=== PATIENT | male | born 1980 | race African-American/Black ===

== ENCOUNTER 2018-01-07 17:22 | Inpatient (IN) | payer OTHER ==
[~2018-01-07] VITALS: Ht 172.7 cm; Wt 70.3 kg
--- NOTE | 2018-01-07 17:38 | NUR ---
PATIENT AMBULATED TO BED 1 AT THIS TIME.
[2018-01-07] MEDS ORDERED: ETOMIDATE 20 MG/10 ML VIAL IVP ONE (17:40)
[2018-01-07] MEDS ORDERED: DEXTROSE 5% IV PRN (17:40)
[2018-01-07] MEDS ORDERED: methylPREDNISolone SS 125 MG/2 ML VIAL IVP ONE (17:40)
[2018-01-07] MEDS ORDERED: EPINEPHRINE IV PRN (17:40)
[2018-01-07] MEDS ORDERED: ALBUTEROL 0.083% 2.5 MG/3 ML NEBU INH ONE (17:40)
[2018-01-07] MEDS ORDERED: MAG SULF 2000 MG/WATER PREMIX 50 ML IV ONE (17:40)
[2018-01-07] MEDS ORDERED: KETAMINE 500 MG/5 ML VIAL IVP ONE (17:40)
[2018-01-07] MEDS ORDERED: NACL 0.9% 1,000 ML IV SCH (17:40)
--- NOTE | 2018-01-07 17:40 | NUR ---
PT. CAME INTO THE ED DUE TO FACIAL SWELLING SINCE 1230. FAMILY MEMBER STATES " AT 1230 HE CALLED ME SAID HE HAD A DEL TACO TACO AND THAT HE STARTED FEELING SWELLING ON MY FACE AND IT HAS JUST GOTTEN WORSE AND NOW I FEEL DIZZY AND SOB". PT. DENIES PAIN AT THIS TIME. ANGIOEDEMA NOTED TO LIPS AND R CHEEK, NO TONGUE SWELLING AT THIS TIME. ABLE TO TALK IN FULL SENTENCES. PT. IS DIAPHORETIC TO TOUCH. PT HAS SOB. LS: WHEEZING HEARD THROUGHOUT AND DIMINISHED UPPER LOBES. ER MD NOTIFIED. WILL CONTINUE TO MONITOR. SAFETY PRECAUTIONS IMPLEMENTED. FAMILY MEMBER AT BEDSIDE.
--- NOTE | 2018-01-07 17:42 | NUR ---
PT. STARTED VOMITING TWICE NO BLOOD NOTED IN VOMIT. PT. UNABLE TO SPEAK AND WOULD NOT RESPOND TO QUESTIONS AT THIS TIME, DIAPHORETIC . ER NOTIFIED.
[2018-01-07 17:51] VITALS: BP 79/38
[2018-01-07] MEDS ORDERED: FAMOTIDINE 20 MG/2 ML VIAL IVP ONE (17:55)
[2018-01-07] MEDS ORDERED: diphenhydrAMINE 50 MG/ML VIAL IVP ONE (17:55)
[2018-01-07] MEDS ORDERED: NACL 0.9% 1,000 ML IV ONE (17:55)
[2018-01-07] MEDS ORDERED: EPINEPHrine 1:1000 1 MG in DEXTROSE 5% 250 ML IV ONE (17:55)
--- NOTE | 2018-01-07 18:25 | NUR ---
PER DR. POWELL " DO NOT HANG THE EPI DRIP RIGHT NOW JUST KEEP IT ON STANDBY JUST IN CASE". WILL CONTINUE TO MONITOR.
--- NOTE | 2018-01-07 18:30 | NUR ---
DR. POWELL DOES NOT WANT MAGNESIUM GIVEN AT THIS TIME. CHARGE NURSE NOTIFIED.
[2018-01-07 18:38] LABS: BASOPHILS # (AUTO) 0.1 K/uL (0.00-0.22); BASOPHILS % (AUTO) 0.5 % (0.0-2.0); EOSINOPHILS # (AUTO) 0.1 K/uL (0-0.4); EOSINOPHILS % (AUTO) 0.6 % (0.0-4.0); HEMATOCRIT 42.9 % (36-52); HEMOGLOBIN 14.7 g/dL (12.0-18.0); LYMPHOCYTES # (AUTO) 2.4 K/uL (2.0-11.5); LYMPHOCYTES % (AUTO) 22.3 % (20.5-51.1); MEAN CORPUSCULAR HEMOGLOBIN 35 pg (27-31); MEAN CORPUSCULAR HGB CONC 34 g/dL (33-37); MEAN CORPUSCULAR VOLUME 102.4 fL (80-94); MONOCYTES # (AUTO) 1.6 K/uL (0.8-1.0); MONOCYTES % (AUTO) 14.3 % (1.7-9.3); NEUTROPHILS # (AUTO) 6.8 K/uL (1.8-7.7); NEUTROPHILS % (AUTO) 62.3 % (42.2-75.2); PLATELET COUNT (AUTO) 268 K/uL (140-450); RED BLOOD CELL COUNT(AUTO) 4.19 MIL/uL (4.20-6.10); RED CELL DISTRIBUTION WIDTH 13.1 % (11.6-13.7); WHITE BLOOD COUNT (AUTO) 10.9 K/uL (4.8-10.8)
[2018-01-07 19:12] LABS: ALBUMIN 4.3 g/dL (3.4-5.0); ANION GAP 16.7 (8-16); CARBON DIOXIDE 24.2 mmol/L (21-32); CREATININE 1.8 mg/dL (0.7-1.3); TOTAL BILIRUBIN 0.9 mg/dL (0.0-1.0)
--- NOTE | 2018-01-07 19:15 | NUR ---
GOT REPORT FROM MIKE LORA. PT GCS 15, RESPIRATIONS EVEN AND UNLABORED, BL LUNG CLEAR. AIRWAY INTACT. UPPER LIP SWOLLEN. VSS, NO ACUTE DISTRESS AT THIS TIME. WILL CONTINEU TO MONITOR.
[2018-01-07 19:18] LABS: POTASSIUM 2.9 mmol/L (3.5-5.1)
[2018-01-07] MEDS ORDERED: HYDROcodone/APAP 7.5/325 MG 1 TAB PO PRN (20:20)
[2018-01-07] MEDS ORDERED: ACETAMINOPHEN 325 MG TAB PO PRN (20:20)
[2018-01-07] MEDS ORDERED: ONDANSETRON 4 MG/2 ML VIAL IVP PRN (20:20)
--- NOTE | 2018-01-07 20:50 | NUR ---
Patient will be admitted to care of DR. TATE. Admited to TELE. Will go to room 111A. Belongings list completed. Report to MIKE MURRAY.
--- NOTE | 2018-01-07 20:50 | NUR ---
PT ARRIVED ON UNIT VIA GURNEY WITH ER NURSE. PT ABLE TO AMBULATE FROM GURNEY TO BED. PT IN STABLE CONDITION. PT REPORT RECEIVED AT BEDSIDE. PT IS A/O X4. PT HAS SWELLING TO MOUTH. DX: ANGIOEDEMA. PT C/O PAIN 6/10 IN UPPER STOMACH REGION. MD AWARE. SKIN IS INTACT. ORIENTED PT TO ROOM AND USE OF CALL LIGHT. BED IS LOCKED, LOW POSITION AND SIDE RAILS UP X2. BOARD UPDATED. MRSA SWAB DONE. CALL LIGHT WITHIN REACH. WILL CONTINUE TO MONITOR PT.
[2018-01-07 20:58] LABS: PROTHROMBIN TIME 9.4 secs (10.8-13.4)
[2018-01-07 21:09] LABS: FREE T4 (FREE THYROXINE) 1.2 ng/dL (0.76-1.46); PHOSPHORUS 3.2 mg/dL (2.5-4.9); THYROID STIMULATING HORMONE 7.05 uIU/mL (0.34-3.74)
--- NOTE | 2018-01-07 21:26 | NUR ---
LAB CALLED WITH CRITICAL VALUE, TROPONIN 0.082. AWARE.
[2018-01-07] MEDS ORDERED: AMLO5TAB PO (21:43)
[2018-01-07] MEDS ORDERED: LISI5TAB18 PO (21:43)
--- NOTE | 2018-01-07 21:59 | NUR ---
PT C/O PAIN. NORCO GIVEN. WILL CONTINUE TO MONITOR.
[2018-01-07] MEDS ORDERED: POTASSIUM CHLORIDE 10 MEQ TABER PO SCH (22:00)
[2018-01-07] MEDS ORDERED: KCL 20 MEQ/WATER INJ PREMIX 200 ML IV SCH (22:00)
[2018-01-08] VITALS: BP 120/68
--- NOTE | 2018-01-08 00:02 | NUR ---
PT IS SLEEPING IN BED. NO SIGNS OF DISTRESS. WILL CONTINUE TO MONITOR.
--- NOTE | 2018-01-08 02:30 | NUR ---
NO CHANGE IN CONDITION. NO SIGNS OF DISTRESS. PT SLEEPING. WILL CONTINUE TO MONITOR.
[2018-01-08 04:00] VITALS: BP 126/84
--- NOTE | 2018-01-08 04:59 | NUR ---
ADMINISTERED SCHEDULED MEDICATION. PT TOLERATED WELL. ALL NEEDS ARE MET AT THIS TIME. WILL CONTINUE TO MONITOR.
[2018-01-08] MEDS ORDERED: methylPREDNISolone SS 125 MG/2 ML VIAL IVP SCH (05:00)
--- NOTE | 2018-01-08 07:05 | NUR ---
ENDORSED PT TO DAY SHIFT NURSE FOR CONTINUITY OF CARE. PT IN STABLE CONDITION.
[2018-01-08 07:56] LABS: HEMATOCRIT 38.7 % (36-52); HEMOGLOBIN 13.1 g/dL (12.0-18.0); LYMPHOCYTES # (AUTO) 0.3 K/uL (2.0-11.5); LYMPHOCYTES % (AUTO) 4.6 % (20.5-51.1); MEAN CORPUSCULAR HEMOGLOBIN 35 pg (27-31); MEAN CORPUSCULAR HGB CONC 34 g/dL (33-37); MONOCYTES # (AUTO) 0.1 K/uL (0.8-1.0); MONOCYTES % (AUTO) 1.6 % (1.7-9.3); NEUTROPHILS # (AUTO) 5.5 K/uL (1.8-7.7); NEUTROPHILS % (AUTO) 93.8 % (42.2-75.2); PLATELET COUNT (AUTO) 220 K/uL (140-450); RED BLOOD CELL COUNT(AUTO) 3.76 MIL/uL (4.20-6.10); RED CELL DISTRIBUTION WIDTH 13.1 % (11.6-13.7); WHITE BLOOD COUNT (AUTO) 5.8 K/uL (4.8-10.8)
[2018-01-08 08:00] VITALS: BP 151/92
[2018-01-08 08:16] LABS: ANION GAP 12.9 (8-16); CARBON DIOXIDE 24.7 mmol/L (21-32); CREATININE 0.8 mg/dL (0.7-1.3); POTASSIUM 3.6 mmol/L (3.5-5.1)
[2018-01-08 08:24] LABS: MAGNESIUM 1.8 mg/dL (1.8-2.4)
[2018-01-08] MEDS ORDERED: NACL 0.9% 1,000 ML IV SCH (08:30)
--- NOTE | 2018-01-08 08:33 | NUR ---
PATIENT HAS BEEN SCREENED AND CATEGORIZED HIGH NUTRITION RISK. PATIENT WILL BE SEEN WITHIN 1-2 DAYS OF ADMISSION. 01/08/18 01/09/[address]
--- NOTE | 2018-01-08 08:44 | NUR ---
ORDERED MEDICATION GIVEN. PATIENT TOLERATED WELL. FAMILY AT BEDSIDE. PATIENT REQUESTED TO SPEAK TO THE DOCTOR ABOUT POSSIBLE DISCHARGE TODAY. WILL FORWARD HIS MESSAGE AND CONCERNS. SAFETY PRECAUTION IN PLACE, CALL LIGHT WITHIN REACH. WILL CONTINUE TO MONITOR PATIENT.
--- NOTE | 2018-01-08 08:48 | NUR ---
INFORMED DR. HERNANDEZ ABOUT TROPONIN 0.072, TRENDING DOWN FROM 0.082, AND NORMAL CREATININE LEVEL OF 0.8. WILL WAIT FOR NEW ORDERS.
[2018-01-08] MEDS ORDERED: amLODIPine 5 MG TAB PO SCH (09:00)
--- NOTE | 2018-01-08 09:24 | NUR ---
CM NOTE INITIAL REVIEW, ER DR'S NOTES, H&P, LAB RESULT, MEDICATION LIST FAXED TO [facility] [phone] # [phone] [facility] EXT [id number]
[2018-01-08 12:00] VITALS: BP 147/86
--- NOTE | 2018-01-08 12:08 | NUR ---
DR. PARKER IN TO SPEAK TO THE PATIENT AND HIS AT BEDSIDE. DUE TO PATIENT'S REQUEST FOR DISCHARGE.
[2018-01-08] MEDS ORDERED: HYDR12.51 PO (12:27)
[2018-01-08] MEDS ORDERED: METH4TAB1 PO (12:28)
--- NOTE | 2018-01-08 12:30 | NUR ---
AFTER SPEAKING TO DR. PARKER, PATIENT DECIDED TO GO AMA BECAUSE HE STATED THAT HE HAS APPOINTMENT WITH HIS PCP AND WILL BE GETTING MRI AND US DONE, PATIENT IS WORRIED ABOUT HIS NEW JOB. AMA PAPERWORK SIGNED. IV REMOVED, IV CATHETER INTACT, MINIMAL BLOOD NOTED. ID BANDS CUT, TELE MONITOR REMOVED, PATIENT WILL NOW GET DRESSED AND BE READY TO GO HOME WITH HIS BY HIS SIDE.
--- NOTE | 2018-01-08 12:55 | NUR ---
AMBULATED OFF FLOOR ON STEADY GAIT ACCOMPANIED BY . PATIENT TOOK ALL HIS BELONGINGS WITH HIM. PATIENT IN STABLE CONDITION.
[2018-01-09] MEDS ORDERED: methylPREDNISolone SS 125 MG/2 ML VIAL IVP SCH (05:00)
[2018-01-10] MEDS ORDERED: methylPREDNISolone SS 125 MG/2 ML VIAL IVP SCH (05:00)
[2018-01-11] MEDS ORDERED: methylPREDNISolone SS 40 MG/ML VIAL IVP SCH (05:00)
[2018-01-12] MEDS ORDERED: methylPREDNISolone SS 40 MG/ML VIAL IVP SCH (05:00)
== END 2018-01-08 12:55 | disposition left against medical advice (07) | DRG 915 ==
LOC: MED 17:22 → MTU 20:19
PROVIDERS: ADMIT General Practice; ATTEND General Practice
DX: T78.3XXA Angioneurotic edema, initial encounter (principal); N17.0 Acute kidney failure with tubular necrosis; E87.6 Hypokalemia; I10 Essential (primary) hypertension; F17.210 Nicotine dependence, cigarettes, uncomplicated; F12.90 Cannabis use, unspecified, uncomplicated; K76.0 Fatty (change of) liver, not elsewhere classified; Z53.21 Procedure and treatment not carried out due to patient leaving prior to being seen by health care provider; T46.4X5A Adverse effect of angiotensin-converting-enzyme inhibitors, initial encounter; Y92.89 Other specified places as the place of occurrence of the external cause; Z88.8 Allergy status to other drugs, medicaments and biological substances; Z79.899 Other long term (current) drug therapy
CPT/HCPCS: 36415; 71045; 80048; 80053; 83036; 83690; 83735; 83880; 84100; 84439; 84443; 84484; 85025; 85610; 85730; 87081; 93005; 96361; 96372; 96374; 96375; 99285; J0171; J1200; J2930; J3475; J3480; J3490; J7030; J7060; J7613; Q0163

== ENCOUNTER 2020-10-07 21:37 | Inpatient (IN) | payer OTHER, SELFPAY ==
[~2020-10-07] VITALS: Ht 167.6 cm; Wt 72.6 kg
[~2020-10-07 21:37] MED LIST: AMLO5TAB PO; HYDR12.51 PO; METH4TAB1 PO
--- NOTE | 2020-10-07 21:45 | NUR ---
To ED bed 11.
[2020-10-07 21:49] VITALS: BP 134/79
--- NOTE | 2020-10-07 21:50 | NUR ---
Dr. Godwin with pt for MSE.
[2020-10-07] MEDS ORDERED: ASPIRIN 81 MG TAB.CHEW PO ONE (22:00)
[2020-10-07] MEDS ORDERED: ONDANSETRON 4 MG/2 ML VIAL IVP ONE (22:00)
[2020-10-07] MEDS ORDERED: MORPHINE SULFATE 4 MG/ML SYR IVP ONE (22:00)
[2020-10-07 22:08] LABS: BASOPHILS # (AUTO) 0.1 K/uL (0.00-0.22); EOSINOPHILS # (AUTO) 0.1 K/uL (0-0.4); HEMATOCRIT 43.7 % (36-52); HEMOGLOBIN 14.9 g/dL (12.0-18.0); LYMPHOCYTES # (AUTO) 1.4 K/uL (2.0-11.5); LYMPHOCYTES % (AUTO) 20.4 % (20.5-51.1); MEAN CORPUSCULAR HEMOGLOBIN 35 pg (27-31); MEAN CORPUSCULAR HGB CONC 34 g/dL (33-37); MEAN CORPUSCULAR VOLUME 101.7 fL (80-94); MONOCYTES # (AUTO) 0.9 K/uL (0.8-1.0); MONOCYTES % (AUTO) 12.8 % (1.7-9.3); NEUTROPHILS # (AUTO) 4.4 K/uL (1.8-7.7); NEUTROPHILS % (AUTO) 64.8 % (42.2-75.2); PLATELET COUNT (AUTO) 249 K/uL (140-450); RED CELL DISTRIBUTION WIDTH 12.5 % (11.6-13.7); WHITE BLOOD COUNT (AUTO) 6.8 K/uL (4.8-10.8)
--- NOTE | 2020-10-07 22:18 | NUR ---
Wesley ulloa in [facility] - 10/07/20 at 2252 by BIANCA PT TAKEN TO CT
[2020-10-07 22:24] LABS: ALBUMIN 3.7 g/dL (3.4-5.0); ANION GAP 15.2 (8-16); CARBON DIOXIDE 27.7 mmol/L (21-32); CREATININE 1.1 mg/dL (0.6-1.3); TOTAL BILIRUBIN 1.4 mg/dL (0.0-1.0)
[2020-10-07 22:26] LABS: POTASSIUM 2.9 mmol/L (3.5-5.1)
--- NOTE | 2020-10-07 22:30 | NUR ---
ambulatory to room 11. placed in VS monitor. pt currently a/o x 4, gcs 15. no extremity weakness. 40 year old male with hx of HTN only coming from home for c/o left wall chest pain since this am. pt staes that this am before going to work his chest started hurting and that the whole time he was at work, he was grabbing onto his chest in pain and felt some palpitations. pt currently denies any other s/sx. denies any headache/ blurry vision. denies n/v/
--- NOTE | 2020-10-07 22:44 | NUR ---
pt placed on 2lmp n/c for comfort and CANDICE protocol
--- NOTE | 2020-10-07 22:52 | NUR ---
PT TAKEN TO CT
--- NOTE | 2020-10-07 23:03 | NUR ---
returned back from CT via [facility]
[2020-10-07] MEDS ORDERED: POTASSIUM CHLORIDE 10 MEQ TABER PO ONE (23:35)
[2020-10-07] MEDS ORDERED: NITROGLYCERIN 0.4 MG TAB SL ONE (23:55)
--- NOTE | 2020-10-08 00:10 | NUR ---
pt states increasing chest pain and states a stabbing feeling. medicated pt with nitro SL. Dr. Hamilton made aware.
--- NOTE | 2020-10-08 01:50 | NUR ---
pt complaining of increased sudden chest pain 01/18. Dr. Hamilton made aware.
[2020-10-08] MEDS ORDERED: MORPHINE SULFATE 4 MG/ML SYR ONE (01:52)
[2020-10-08] MEDS ORDERED: NITROGLYCERIN 2% 1 GM PKT TP ONE ×2 (01:52→02:00)
[2020-10-08] MEDS ORDERED: MORPHINE SULFATE 4 MG/ML SYR IVP ONE (01:55)
--- NOTE | 2020-10-08 02:01 | NUR ---
1/2 inch nitro patch applied to left upper chest.
[2020-10-08] MEDS ORDERED: hePARIN / DEXT 5% PREMIX 250 ML IV ONE (02:05)
[2020-10-08] MEDS ORDERED: HEPARIN PER PHARMACY MC PRN ×2 (02:05→09:55)
[2020-10-08] MEDS ORDERED: AZITHROMYCIN 250 MG TAB PO ONE (02:10)
[2020-10-08] MEDS ORDERED: AMOXIL/CLAVULANATE 875/125 MG 1 TAB PO ONE (02:10)
[2020-10-08] MEDS ORDERED: HYDROcodone/APAP 5/325 MG 1 TAB TAB PO PRN (02:55)
[2020-10-08] MEDS ORDERED: MAGNESIUM OXIDE 400 MG TAB PO PRN (02:55)
[2020-10-08] MEDS ORDERED: ACETAMINOPHEN 325 MG TAB PO PRN (02:55)
[2020-10-08] MEDS ORDERED: MAG SULF 2000 MG/WATER PREMIX 50 ML IV PRN (02:55)
[2020-10-08] MEDS ORDERED: LORazepam 1 MG TAB PO PRN (02:55)
[2020-10-08] MEDS ORDERED: ZOLPIDEM 5 MG TAB PO PRN (02:55)
[2020-10-08] MEDS ORDERED: KCL 20 MEQ/WATER INJ PREMIX 200 ML IV PRN (02:55)
[2020-10-08] MEDS ORDERED: POTASSIUM CHLORIDE 10 MEQ TABER PO PRN (02:55)
[2020-10-08] MEDS ORDERED: MORPHINE SULFATE 4 MG/ML SYR IVP PRN (02:55)
[2020-10-08] MEDS ORDERED: ONDANSETRON 4 MG/2 ML VIAL IVP PRN (02:55)
[2020-10-08 02:59] LABS: PROTHROMBIN TIME 10.5 secs (10.8-13.4)
[2020-10-08] MEDS ORDERED: MORPHINE SULFATE 2 MG/ML SYR IVP PRN ×2 (03:15)
[2020-10-08] MEDS ORDERED: NITROGLYCERIN 0.4 MG TAB SL PRN (03:15)
[2020-10-08] MEDS ORDERED: PROMETHAZINE 25 MG/ML VIAL IVP PRN (03:15)
--- NOTE | 2020-10-08 04:36 | NUR ---
pt asleep. NAD noted
--- NOTE | 2020-10-08 07:15 | NUR ---
REPORT RECEIVED FROM MANNY MCKEON FOR CONTINUITY OF CARE
--- NOTE | 2020-10-08 07:30 | NUR ---
PT AWAKE IN BED, RESPIRATIONS EVEN AND UNLABORED. CHEST RISE IS SYMMETRICAL. HEPARIN DRIP CURRENTLY INFUSING. WILL CONTINUE TO MONITOR.
--- NOTE | 2020-10-08 07:47 | NUR ---
RECEIVED CALL FROM PT'S BROTHER (WEI). PER PT OKAY TO GIVE UPDATES. ALL QUESTIONS AND CONCERNS ANSWERED AT THIS TIME.
--- NOTE | 2020-10-08 08:00 | NUR ---
RECEIVED TELEPHONE REPORT FROM ER NURSE FOR CONTINUITY OF CARE. PER ER NURSE, PT [id number], ON 4L VIA NC. IV TO RIGHT FOREARM 18G AND RIGHT AC 18G. SKIN INTACT. ON HEPARIN DRIP @ 8.709ML/HR FOR TROPONIN 2.655. Addendum: 10/08/20 at 1929 by Kaleb Lee RN HEPARIN DRIP RATE 8.70ML/RH=292 UNITS/HR.
--- NOTE | 2020-10-08 08:10 | NUR ---
Patient will be admitted to care of Dr Florez. Admited to Telemetry. Will go to room 121-B. Belongings list completed. Report to Corbin MCKEON.
[2020-10-08 08:20] VITALS: BP 149/108
--- NOTE | 2020-10-08 08:35 | NUR ---
MRSA SWAB SAMPLE COLLECTED, PATIENT CAME THE UNIT WITH THE URINE SAMPLE AT BEDSIDE, COLLECTED IN ER. WILL SEND TO THE LAB.
--- NOTE | 2020-10-08 08:39 | NUR ---
TYLENOL GIVEN FOR HEADACHE, COLACE GIVEN SCHEDULED. EDUCATION PROVIDED, WILL CONTINUE TO MONITOR.
[2020-10-08 08:56] LABS: BARBITURATE, URINE NEGATIVE ng/ml (NEG <=200); BENZODIAZEPINE, URINE NEGATIVE ng/mL (NEG <=200); CANNABINOID, URINE POSITIVE ng/mL (NEG <=50); COCAINE, URINE NEGATIVE ng/mL (NEG <=300); OPIATE, URINE POSITIVE ng/mL (NEG <=2000); PHENCYCLIDINE SCREEN,URINE NEGATIVE ng/mL (NEG <=25)
[2020-10-08] MEDS ORDERED: DOCUSATE SODIUM 100 MG GELCAP PO SCH (09:00)
--- NOTE | 2020-10-08 09:53 | NUR ---
RECEIVED CALL FROM LAB. PTT LEVEL 81.7. INFORMED PHARMACIST TO INPUT THE PROTOCOL. WILL FOLLOW UP.
[2020-10-08] MEDS: hePARIN / DEXT 5% PREMIX 250 ML IV SCH ×2 (10:25→17:19)
--- NOTE | 2020-10-08 10:28 | NUR ---
ADJUSTED HEPARIN DRIP RATE TO 7.7ML/HR, PER PROTOCOL. VERIFIED WITH CHARGE NURSE. PTT ORDERED. WILL CONTINUE TO MONITOR.
--- NOTE | 2020-10-08 11:16 | NUR ---
PROMOTIONS COORDINATOR DR. PICHARDO AT PATIENT'S BEDSIDE CHECKING THE PATIENT.
--- NOTE | 2020-10-08 11:19 | NUR ---
Called Leah at [facility] and left a message to give a list of contracted hospitals to transfer the patient.
--- NOTE | 2020-10-08 11:58 | NUR ---
contacted Leah, caseworker at [place] and inform to transfer patient to [facility] and faxed clinical review to Jennifer at [phone]. The accepting Doctor is ALEJANDRO Pop. and Dr. Ho is the maintenance helper utility engineer. Leah will fax the Authorization to [facility] transfer center and also will arrange transportation as well. Dr. Ho is aware. Patient can transfer with the heparin drip on hold.
[2020-10-08 12:00] VITALS: BP 155/109
[2020-10-08] MEDS ORDERED: AZITHROMYCIN 500 MG in DEXTROSE 5% 250 ML IV SCH ×2 (12:00→23:00)
[2020-10-08] MEDS ORDERED: METOPROLOL 25 MG TAB PO SCH ×2 (12:49→21:00)
--- NOTE | 2020-10-08 13:05 | NUR ---
ATIVAN GIVEN FOR ALCOHOL WITHDRAWAL, PER PATIENT. EDUCATED REGARDING ALCOHOL ABSTINENCE. VERBALIZED WILL THINK ABOUT IT.
--- NOTE | 2020-10-08 13:59 | NUR ---
Contacted Ly at [facility] to follow up on the transfer and I gave her the accepting physician Sandee Beatty. it was given to us by Dr. Fox Ho. Jennifer said this doctor is on suspension, and asked me to contact [place] correctional case manager Leah because she is helping with accepting MD. called Leah and left a message.
[2020-10-08 16:00] VITALS: BP 144/92
--- NOTE | 2020-10-08 17:00 | NUR ---
CALLED J[place]-GAS OPERATOR OF [facility] [phone]. WAITING FOR THE ACCEPTING PHYSICIAN AND BED AVAILABLE FOR THE PATIENT TO TRANSFER. [facility] IS CONTRACTED FACILITY. PER JAMAICA, ONCE HAVE ROOM AVAILABLE AND HAVE ACCEPTING PHYSICIAN, WILL ARRANGE TRANSFER. WILL ENDORSE.
--- NOTE | 2020-10-08 17:08 | NUR ---
PATIENT RESTING IN BED COMFORTABLY, DENIES CHEST PAIN AT THIS TIME. IV HEPARIN DRIP INFUSING ORDERED. SAFETY MEASURES IN PLACE, WILL CONTINUE TO MONITOR.
--- NOTE | 2020-10-08 17:13 | NUR ---
Called Leah caseworker protective services at [place] and she stated that she got a doctor to accept the patient and Leah informed Jennifer at [facility]. Ly is waiting on a Tele bed to be available then will call [facility] for patient to transfer.
--- NOTE | 2020-10-08 17:20 | NUR ---
PATIENT'S LATEST PTT LEVEL 51.6, NO HEPARIN DRIP INFUSING RATE CHANGE NEEDED PER PROTOCOL. PTT ORDERED FOR 23:20.
--- NOTE | 2020-10-08 19:22 | NUR ---
ENDORSED PATIENT TO INSULATION BOARD BACK TENDER RN FOR CONTINUITY OF CARE. PATIENT IN STABLE CONDITION WITH HEPARIN DRIP.
--- NOTE | 2020-10-08 19:22 | NUR ---
RECEIVED PATIENT FROM AM SHIFT NURSE FOR CONTINUITY OF CARE. ALERT AND ABLE TO MAKE NEEDS KNOWN. RESPIRATIONS EVEN, UNLABORED. NO S/S RESPIRATORY DISTRESS. S1/S2 AUSCULTATED. NO C/O PAIN. NO S/S ACUTE DISTRESS. SKIN WARM, DRY. IV SITE TO LEFT AC 20G, INFUSING FLUIDS WELL. ABDOMEN SOFT, NONTENDER. BOWEL SOUNDS ACTIVE x4 QUADRANTS. CONTINENT OF B/B. PLAN OF CARE DISCUSSED. CALL LIGHT WITHIN REACH.
[2020-10-08 20:00] VITALS: BP 139/89
--- NOTE | 2020-10-08 20:46 | NUR ---
[facility] CASKET INSPECTOR CHRISTIAN CALLED AND GAVE US THE ROOM NUMBER AND PHONE TO CALL FOR THE REPORT AND STATED TO HOLD FOR THE TRANSPORT FOR NOW BECAUSE THE HOSPITALIST WHO IS BAND DIRECTOR WANTED TO FIND OUT ABOUT THE PT FIRST. CALLED [facility] MINE WEDGE SAWYER TO ASK REGARDING THE PATIENT TRANSPORTATION. AWAITING FOR J[place]ICA ANDREWS TO CALL BACK.
--- NOTE | 2020-10-08 20:52 | NUR ---
THE DAG COATER FROM [facility] CALLED BACK AND SAID ITS A GO TO TRANSFER THE PATIENT TO [facility] TO ROOM 266- A, . STILL AWAITING FOR JAMAICA DUBOSE TO CALL BACK TO ARRANGE THE TRANSPORTATION FOR THE PATIENT.
[2020-10-08] MEDS ORDERED: ATORVASTATIN 20 MG TAB PO SCH (21:00)
[2020-10-08] MEDS ORDERED: LOSARTAN 50 MG TAB PO SCH (21:00)
--- NOTE | 2020-10-08 21:23 | NUR ---
CALLED JAMAICA DUBOSE FOR THE SECOND TIME REGARDING THE PATIENT TRANSPORTATION TO TRANSFER THE PATIENT TO [facility]. STILL AWAITING FOR [place] TO CALL BACK.
--- NOTE | 2020-10-08 22:02 | NUR ---
CALLED OUR SKATING CARHOP [place] AND MADE AWARE THAT THE PATIENT HAS BED AVAILABLE IN [facility] AND I PAGED JAMAICA ANDREWS OF [facility] TWICE AND LEFT A MESSAGE TO JULIANA SKELTON REGARDING THE ISSUE OF TRANSPORTATION FOR THE PATIENT AND BOTH ARE NOT RESPONDING. J[place]ICA () PROVIDED ME WITH ANOTHER CM HEARING SPECIALIST TAVON MORAN [phone]. CALLED DEAN AND LEFT A MESSAGE.
--- NOTE | 2020-10-08 22:10 | NUR ---
DEAN CALLED BACK AND SPOKE WITH HER REGARDING ARRANGING THE PT TRANSP[facility]ATION [facility]. PER DEAN TO JUST CALL [facility] AND ARRANGE THE PATIENT TRANSPORTATION FOR TONIGHT TO [facility].
--- NOTE | 2020-10-08 22:30 | NUR ---
GAVE REPORT TO MIKE MARTINS FROM [facility], PHONE NUMBER [phone]. PATIENT WILL BE ACCEPTED BY DOCTOR GANESH MANJARREZ. ATTENDING WILL BE JOANA GORDON.
--- NOTE | 2020-10-08 22:42 | NUR ---
CALLED [facility] HOPPER ATTENDANT CHRISTIAN AND SPOKE WITH HER. MADE HER AWARE THAT WE ALREADY ARRANGED THE PATIENT TRANSPORTATION AND AWAITING FOR THE [facility] TO ASSESSMENT DIRECTOR THE PATIENT. MIKE PLUMMER ALSO GAVE REPORT TO THE RECEIVING RN.
--- NOTE | 2020-10-08 22:44 | NUR ---
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 ETA 30 MINUTES PER [facility].
[2020-10-08 23:00] VITALS: BP 139/89
[2020-10-08 23:17] VITALS: BP 139/89
--- NOTE | 2020-10-08 23:31 | NUR ---
PATIENT LEFT VIA GURNEY AND 2 TRANSPORT MEMBERS. ALL PERSONAL BELONGINGS AND PERTINENT DISCHARGE PAPERS GIVEN TO PATIENT. IV SITE LEFT INTACT; [facility]. ID BANDS REMOVED. VS STABLE.
== END 2020-10-08 23:30 | disposition short-term general hospital (02) | DRG 280 ==
LOC: MED 21:37 → MTU 10-08 02:59
PROVIDERS: ADMIT Internal Medicine; ATTEND Internal Medicine
DX: I21.4 Non-ST elevation (NSTEMI) myocardial infarction (principal); J18.1 Lobar pneumonia, unspecified organism; R07.89 Other chest pain; R77.8 Other specified abnormalities of plasma proteins; Z83.3 Family history of diabetes mellitus; F10.10 Alcohol abuse, uncomplicated; Y90.9 Presence of alcohol in blood, level not specified; I11.9 Hypertensive heart disease without heart failure; Z88.8 Allergy status to other drugs, medicaments and biological substances; Z82.49 Family history of ischemic heart disease and other diseases of the circulatory system; Z20.822 Contact with and (suspected) exposure to COVID-19
CPT/HCPCS: 36415; 71045; 71275; 80053; 80305; 83880; 84484; 85025; 85610; 85730; 86900; 86901; 87040; 87081; 93005; 96374; 96375; 99285; J0456; J0696; J1644; J2270; J2405; J7060; Q9967

== ENCOUNTER 2021-05-29 09:54 | Emergency (ER) | payer MEDICAID, OTHER, SELFPAY ==
[~2021-05-29] VITALS: Ht 167.6 cm; Wt 69.9 kg
[2021-05-29 10:17] VITALS: BP 189/123
[2021-05-29 11:07] LABS: BASOPHILS % (AUTO) 0.7 % (0.0-2.0); HEMATOCRIT 41.4 % (36-52); HEMOGLOBIN 14.1 g/dL (12.0-18.0); LYMPHOCYTES # (AUTO) 0.4 K/uL (2.0-11.5); LYMPHOCYTES % (AUTO) 6.4 % (20.5-51.1); MEAN CORPUSCULAR HEMOGLOBIN 35 pg (27-31); MEAN CORPUSCULAR HGB CONC 34 g/dL (33-37); MEAN CORPUSCULAR VOLUME 102.8 fL (80-94); MONOCYTES # (AUTO) 0.5 K/uL (0.8-1.0); MONOCYTES % (AUTO) 6.9 % (1.7-9.3); NEUTROPHILS # (AUTO) 5.8 K/uL (1.8-7.7); PLATELET COUNT (AUTO) 235 K/uL (140-450); RED BLOOD CELL COUNT(AUTO) 4.03 MIL/uL (4.20-6.10); RED CELL DISTRIBUTION WIDTH 13.5 % (11.6-13.7); WHITE BLOOD COUNT (AUTO) 6.8 K/uL (4.8-10.8)
[2021-05-29 11:39] LABS: ALBUMIN 3.8 g/dL (3.4-5.0); ANION GAP 16.6 (8-16); CREATININE 1.1 mg/dL (0.6-1.3); POTASSIUM 3.6 mmol/L (3.5-5.1); TOTAL BILIRUBIN 0.9 mg/dL (0.0-1.0)
[2021-05-29] MEDS ORDERED: ONDA-188 PO (11:58)
[2021-05-29] MEDS ORDERED: AMLO5TAB PO (11:58)
[2021-05-29] MEDS ORDERED: ACET-8386 PO (11:58)
[2021-05-29] MEDS ORDERED: HYDR12.51 PO (11:58)
[2021-05-29 12:36] VITALS: BP 175/99
--- NOTE | 2021-05-29 18:22 | NUR ---
NO NURSING CARE GIVEN-Patient discharged with v/s stable. Written and verbal after care instructions given and explained. Patient alert, oriented and verbalized understanding of instructions. Ambulatory with steady gait. All questions addressed prior to discharge. ID band removed. Patient advised to follow up with PMD. Rx OF HYDROCODON-ACETAMINOPHEN, NORVASC, ORETIC, ZOFRAN given. Patient educated on indication of medication including possible reaction and side effects. Opportunity to ask questions provided and answered.
== END 2021-05-29 12:36 | disposition home or self-care (01) ==
LOC: MED 09:54
DX: K80.20 Calculus of gallbladder without cholecystitis without obstruction (principal); R11.10 Vomiting, unspecified; I10 Essential (primary) hypertension; F17.210 Nicotine dependence, cigarettes, uncomplicated; Z79.899 Other long term (current) drug therapy; Z88.8 Allergy status to other drugs, medicaments and biological substances; Z71.6 Tobacco abuse counseling
CPT/HCPCS: 36415; 76705; 80053; 83690; 85025; 99284

== ENCOUNTER 2022-01-03 16:59 | Inpatient (IN) | payer MEDICAID ==
[~2022-01-03] VITALS: Ht 167.6 cm; Wt 68.0 kg
[~2022-01-03 16:59] MED LIST changes: +ACET-8386 PO; +AMOX-999 PO; -METH4TAB1 PO; +ONDA-188 PO; +PANT40EC PO
[2022-01-03 17:01] VITALS: BP 149/98
[2022-01-03] MEDS ORDERED: ONDANSETRON 4 MG/2 ML VIAL IVP ONE (18:00)
[2022-01-03] MEDS ORDERED: KETOROLAC 30 MG/ML VIAL IVP ONE ×2 (18:00→19:55)
[2022-01-03] MEDS ORDERED: NACL 0.9% 1,000 ML IV SCH (18:00)
[2022-01-03 18:17] LABS: BASOPHILS # (AUTO) 0.1 K/uL (0.00-0.22); BASOPHILS % (AUTO) 1.4 % (0.0-2.0); EOSINOPHILS # (AUTO) 0.1 K/uL (0-0.4); EOSINOPHILS % (AUTO) 1.5 % (0.0-4.0); HEMATOCRIT 40.6 % (36-52); HEMOGLOBIN 13.5 g/dL (12.0-18.0); LYMPHOCYTES # (AUTO) 0.7 K/uL (2.0-11.5); MEAN CORPUSCULAR HEMOGLOBIN 33 pg (27-31); MEAN CORPUSCULAR HGB CONC 33 g/dL (33-37); MEAN CORPUSCULAR VOLUME 99.1 fL (80-94); MONOCYTES # (AUTO) 0.4 K/uL (0.8-1.0); MONOCYTES % (AUTO) 10.1 % (1.7-9.3); NEUTROPHILS # (AUTO) 3.2 K/uL (1.8-7.7); PLATELET COUNT (AUTO) 225 K/uL (140-450); RED CELL DISTRIBUTION WIDTH 13.4 % (11.6-13.7); WHITE BLOOD COUNT (AUTO) 4.4 K/uL (4.8-10.8)
[2022-01-03 18:57] LABS: ALBUMIN 3.7 g/dL (3.4-5.0); ANION GAP 15.5 (8-16); CARBON DIOXIDE 26.9 mmol/L (21-32); CREATININE 1.1 mg/dL (0.6-1.3); POTASSIUM 3.4 mmol/L (3.5-5.1); TOTAL BILIRUBIN 1.4 mg/dL (0.0-1.0)
[2022-01-03] MEDS ORDERED: MAG SULF 2000 MG/WATER PREMIX 50 ML IV PRN (20:10)
[2022-01-03] MEDS ORDERED: LORazepam 2 MG/ML VIAL IVP PRN (20:10)
[2022-01-03] MEDS ORDERED: DOCUSATE SODIUM 100 MG GELCAP PO PRN (20:10)
[2022-01-03] MEDS ORDERED: ONDANSETRON 4 MG/2 ML VIAL IVP PRN (20:10)
[2022-01-03 20:46] LABS: AMYLASE 164 U/L (25-115); LIPASE 323 U/L (73-393)
[2022-01-03] MEDS: NACL 0.9% 1,000 ML IV SCH (20:51)
[2022-01-03] MEDS ORDERED: ceFAZolin 1,000 MG VIAL ONE (20:57)
[2022-01-03 21:48] LABS: APPEARANCE,URINE CLEAR (CLEAR); BILIRUBIN,URINE NEGATIVE (NEGATIVE); BLOOD, URINE NEGATIVE (NEGATIVE); COLOR,URINE YELLOW (YELLOW); LEUKOCYTE ESTERASE ,URINE NEGATIVE (NEGATIVE); NITRITE, URINE NEGATIVE (NEGATIVE); UGLUCOSE NEGATIVE (NEGATIVE)
[2022-01-03] MEDS: POTASSIUM CHLORIDE 10 MEQ TABER PO PRN (23:19)
[2022-01-03] MEDS: ZOLPIDEM 10 MG TAB PO PRN (23:19)
[2022-01-04 00:12] VITALS: BP 150/78
[2022-01-04 04:00] VITALS: BP 140/75
[2022-01-04 05:13] LABS: ANION GAP 15.3 (8-16); CARBON DIOXIDE 25.5 mmol/L (21-32); CREATININE 1.1 mg/dL (0.6-1.3); POTASSIUM 3.8 mmol/L (3.5-5.1)
[2022-01-04 05:34] LABS: BASOPHILS % (AUTO) 1.1 % (0.0-2.0); EOSINOPHILS # (AUTO) 0.1 K/uL (0-0.4); EOSINOPHILS % (AUTO) 3.1 % (0.0-4.0); HEMATOCRIT 37.6 % (36-52); HEMOGLOBIN 12.7 g/dL (12.0-18.0); LYMPHOCYTES # (AUTO) 0.5 K/uL (2.0-11.5); LYMPHOCYTES % (AUTO) 14.5 % (20.5-51.1); MEAN CORPUSCULAR HEMOGLOBIN 33 pg (27-31); MEAN CORPUSCULAR HGB CONC 34 g/dL (33-37); MEAN CORPUSCULAR VOLUME 98.9 fL (80-94); MONOCYTES # (AUTO) 0.4 K/uL (0.8-1.0); MONOCYTES % (AUTO) 12.2 % (1.7-9.3); NEUTROPHILS # (AUTO) 2.5 K/uL (1.8-7.7); NEUTROPHILS % (AUTO) 69.1 % (42.2-75.2); PLATELET COUNT (AUTO) 206 K/uL (140-450); RED CELL DISTRIBUTION WIDTH 13.4 % (11.6-13.7); WHITE BLOOD COUNT (AUTO) 3.5 K/uL (4.8-10.8)
[2022-01-04] MEDS: NACL 0.9% 1,000 ML IV SCH ×2 (06:54→22:45)
[2022-01-04] MEDS: KETOROLAC 15 MG/ML VIAL IM PRN ×2 (06:54→11:25)
[2022-01-04 14:07] VITALS: BP 139/79
[2022-01-04 20:00] VITALS: BP 156/87
[2022-01-04] MEDS: ZOLPIDEM 10 MG TAB PO PRN (20:54)
[2022-01-05] MEDS: NACL 0.9% 1,000 ML IV SCH (00:30)
[2022-01-05 04:00] VITALS: BP 142/88
[2022-01-05 05:59] LABS: BASOPHILS % (AUTO) 0.6 % (0.0-2.0); EOSINOPHILS # (AUTO) 0.2 K/uL (0-0.4); EOSINOPHILS % (AUTO) 3.8 % (0.0-4.0); HEMOGLOBIN 13.3 g/dL (12.0-18.0); LYMPHOCYTES # (AUTO) 0.4 K/uL (2.0-11.5); MEAN CORPUSCULAR HEMOGLOBIN 33 pg (27-31); MEAN CORPUSCULAR HGB CONC 34 g/dL (33-37); MEAN CORPUSCULAR VOLUME 97.8 fL (80-94); MONOCYTES # (AUTO) 0.5 K/uL (0.8-1.0); NEUTROPHILS # (AUTO) 3.2 K/uL (1.8-7.7); PLATELET COUNT (AUTO) 207 K/uL (140-450); RED BLOOD CELL COUNT(AUTO) 3.98 MIL/uL (4.20-6.10); RED CELL DISTRIBUTION WIDTH 13.1 % (11.6-13.7); WHITE BLOOD COUNT (AUTO) 4.2 K/uL (4.8-10.8)
[2022-01-05 07:06] LABS: ALBUMIN 3.6 g/dL (3.4-5.0); ANION GAP 12.9 (8-16); CARBON DIOXIDE 28.4 mmol/L (21-32); CREATININE 1.1 mg/dL (0.6-1.3); POTASSIUM 3.3 mmol/L (3.5-5.1); TOTAL BILIRUBIN 2.5 mg/dL (0.0-1.0)
[2022-01-05 08:00] VITALS: BP 147/97
[2022-01-05 08:15] LABS: LYMPHOCYTES % (AUTO) 8.7 % (20.5-51.1); MONOCYTES % (AUTO) 11.4 % (1.7-9.3); NEUTROPHILS % (AUTO) 75.5 % (42.2-75.2)
[2022-01-05] MEDS: POTASSIUM CHLORIDE 10 MEQ TABER PO PRN (11:31)
[2022-01-05] MEDS ORDERED: IBUP-2213 PO (14:07)
== END 2022-01-05 17:20 | disposition home or self-care (01) ==
LOC: MED 16:59 → MMU 20:07
PROVIDERS: ADMIT Family Medicine; ATTEND Family Medicine
DX: K80.64 Calculus of gallbladder and bile duct with chronic cholecystitis without obstruction (principal); F41.9 Anxiety disorder, unspecified; I10 Essential (primary) hypertension; Z20.822 Contact with and (suspected) exposure to COVID-19; Z88.1 Allergy status to other antibiotic agents; Z88.5 Allergy status to narcotic agent; Z88.8 Allergy status to other drugs, medicaments and biological substances; Z79.899 Other long term (current) drug therapy
CPT/HCPCS: 36415; 71046; 76705; 80048; 80053; 81003; 82150; 83690; 83735; 85025; 87081; 96361; 96374; 96375; 96376; 99285; J0690; J1885; J2060; J2405; J7060; Q0092